=== PATIENT | female | born 1990 | race Caucasian/White ===

== ENCOUNTER → 2018-01-05 | Outpatient (CLI) | payer OTHER ==
[2018-01-05 10:48] LABS: HEMATOCRIT 35.3 % (35.0-46.0); MEAN CELL VOLUME 91.4 FL (80.0-100.0); MEAN PLATELET VOLUME 8.3 FL (7.0-11.0); PLATELET COUNT 216 TH/MM3 (150-450); RED BLOOD COUNT 3.86 MIL/MM3 (4.00-5.30); RED CELL DISTRIBUTION WIDTH 13.8 % (11.6-17.2); WHITE BLOOD COUNT 13.5 TH/MM3 (4.0-11.0)
== END ==
LOC: CLAB 09:15
PROVIDERS: ATTEND Obstetrics & Gynecology
DX: R74.0 Nonspecific elevation of levels of transaminase and lactic acid dehydrogenase [LDH] (principal); Z33.1 Pregnant state, incidental
CPT/HCPCS: 36415; 82951; 85027

== ENCOUNTER 2018-04-04 06:50 | Inpatient (IN) ==
[2018-04-04] MEDS ORDERED: Citric Acid/Sodium Citrate Liq 30 ML UDC PO SCH (07:30)
[2018-04-04 07:42] LABS: Baso % (Auto) 0.4 % (0.0-2.0); Eos # (Auto) 0.1 th/mm3 (0.0-0.4); Eos % (Auto) 0.5 % (0.0-4.0); Hematocrit 36.2 % (35.0-46.0); Hemoglobin 12.2 gm/dL (11.6-15.3); Lymph # (Auto) 2.4 th/mm3 (1.0-4.8); Lymph % (Auto) 23.1 % (9.0-44.0); Mean Corpuscular HGB Conc 33.7 % (32.0-36.0); Mean Corpuscular Hemoglobin 29.7 pg (27.0-34.0); Mean Corpuscular Volume 88.1 fL (80.0-100.0); Mean Platelet Volume 9.1 fL (7.0-11.0); Mono # (Auto) 0.5 th/mm3 (0.0-0.9); Mono % (Auto) 4.4 % (0.0-8.0); Neut # (Auto) 7.5 th/mm3 (1.8-7.7); Neut % (Auto) 71.6 % (16.0-70.0); Platelet Count 188 th/mm3 (150-450); Red Blood Count 4.11 mil/mm3 (4.00-5.30); Red Cell Distribution Width 14.1 % (11.6-17.2); White Blood Count 10.5 th/mm3 (4.0-11.0)
[2018-04-04 07:52] LABS: Bilirubin,Urine Negative (Negative); Clarity,Urine Hazy (Clear); Color,Urine Yellow (Yellw/Straw); Glucose,Urine (UA) Negative (Negative); Leukocyte Esterase,Urine Negative (Negative); Nitrite,Urine Negative (Negative); Specific Gravity,Urine 1.017 (1.002-1.035); Squamous Epithelial Cell,Urine 5 /hpf (0-5)
[2018-04-04] MEDS ORDERED: ceFAZolin 2 GM Premix Inj 2 GM/50 ML PIGGYBACK IV.SIG SCH (07:56)
[2018-04-04 07:57] LABS: Amphetamine Screen,Urine Neg (Neg); Barbiturate Screen,Urine Neg (Neg); Cannabinoid Screen,Urine Neg (Neg); Cocaine Screen,Urine Neg (Neg)
[2018-04-04 07:58] LABS: Opiate Screen,Urine Neg (Neg)
[2018-04-04] MEDS ORDERED: Zolpidem Tartrate 5 MG Tablet PO PRN (10:00)
[2018-04-04] MEDS ORDERED: Senna/Docusate Sodium 8.6/50 MG Tablet PO PRN (10:00)
[2018-04-04] MEDS ORDERED: Ibuprofen 600 MG Tablet PO PRN (10:00)
[2018-04-04] MEDS ORDERED: Oxytocin 30 Units/500ml Premix 30 UNITS/500 ML BAG IV.SIG ONE ×2 (10:00)
[2018-04-04] MEDS ORDERED: Simethicone 80 MG Chew Tablet PO PRN (10:00)
[2018-04-04] MEDS ORDERED: Ketorolac Inj 30 MG/ML (IVP) Vial IV.PUSH PRN (10:02)
--- NOTE | 2018-04-04 10:29 | MP ---
cc: Ariel Wen MD DATE OF OPERATION: 04/04/2018 PREOPERATIVE DIAGNOSES: 1. Term . 2. Previous section. POSTOPERATIVE DIAGNOSES: 1. Term . 2. Previous section. 3. Delivered. PROCEDURE PERFORMED: Repeat low transverse section. ANESTHESIA: Spinal. SURGEON: Ariel Wen MD WIRE [employer]AME LAMPSH[employer] MAKER: Gisele Banuelos. ESTIMATED BLOOD LOSS: About 600 mL. FLUIDS: 1.2 liters crystalloid. OBJECTIVE FINDINGS: Following induction of adequate spinal anesthesia, the patient was prepped and draped supine on the operating table in left lateral tilt position usual sterile fashion and the bladder drained via Estevez catheterization. The abdomen was opened through a Pfannenstiel incision using a knife to cut down through the skin to the fascia. The fascia opened transversely, stripped from the muscles, rectus muscle split in the midline and the peritoneum opened sharply without incident. The bladder flap was taken down sharply and retracted inferiorly with the Josie blade. The lower uterine segment was incised transversely with a knife, extended blunt dissection. Membranes ruptured, revealed clear fluid. Baby was in LOT position. The vacuum extractor applied to the occiput and used to deliver the head through the uterine abdominal wound. Mouth was suctioned, cord clamped and cut and the baby passed to the awaiting team. A viable vigorous female, Apgars 8 and 9. Cord blood was obtained for typing, the placenta for donation. Uterine cavity wiped clean with laps. Uterus was exteriorized and closed in 2 layers of running suture, first with a running locking stitch of 0 Vicryl, second with running imbricating stitch of 0 Vicryl. Posterior inspection, uterus, tubes, and ovaries normal. Uterus was replaced into the abdominal cavity. Irrigation performed. No bleeding was evident and the bladder flap was closed with a running stitch of 3-0 Vicryl. All laps and retractors removed. Counts were correct. The anterior peritoneum closed with running 2-0 Vicryl. The fascia with a running locking stitch of 0 Vicryl, corner to the midline and tied, subcutaneous with running 3-0 Vicryl and the skin with a running subcuticular 3-0 Monocryl. Dermabond applied. All counts were correct and the patient was awakened and taken to the recovery room in good condition. MD PALOMA Luna/MAYE , 10:07 AM , 10:13 AM
[2018-04-04] MEDS ORDERED: Oxytocin 30 Units/500ml Premix 30 UNITS/500 ML BAG ONE (11:04)
[2018-04-04] MEDS ORDERED: Oxytocin 30 Units/500ml Premix 30 UNITS/500 ML BAG IV.SIG PRN (15:00)
[2018-04-05] MEDS ORDERED: Measles/Mumps/Rubella Vaccine Inj 0.5 ML Vial SQ ONE (16:00)
[2018-04-05] MEDS ORDERED: Diphtheria/Tetanus/Pertussis Vaccine Inj 0.5 ML Syringe IM ONE (16:00)
[2018-04-06 08:55] LABS: Hematocrit 35.5 % (35.0-46.0); Hemoglobin 11.8 gm/dL (11.6-15.3); Mean Corpuscular HGB Conc 33.4 % (32.0-36.0); Mean Corpuscular Volume 89.9 fL (80.0-100.0); Mean Platelet Volume 8.5 fL (7.0-11.0); Platelet Count 201 th/mm3 (150-450); Red Blood Count 3.95 mil/mm3 (4.00-5.30); Red Cell Distribution Width 14.3 % (11.6-17.2); White Blood Count 12.5 th/mm3 (4.0-11.0)
--- NOTE | 2018-04-06 09:19 | MD ---
cc: Ariel Wen MD DATE OF DISCHARGE: 04/06/2018 ADMITTING DIAGNOSES: 1. Term . 2. Previous section. DISCHARGE DIAGNOSES: 1. Term . 2. Previous section. 3. Post delivered. PROCEDURE: Repeat low transverse section on 04/04/2018. HISTORY OF PRESENT ILLNESS: The patient is a 27-year-old white female, para 1-0-0-1. LMP of 07/01/2017, EDC of 04/07/2018. Her course was benign. Her previous delivery was for failure to progress occiput posterior. The patient requested a repeat section for this delivery. PAST MEDICAL HISTORY: Previous surgery, T and A, age 19, spontaneous in 2013 that required D and C, and a in 2015. MEDICATIONS: Vitamins. ALLERGIES: NONE. TRANSFUSIONS: None. SOCIAL HISTORY: She is . 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 Alcohol, tobacco, and drugs are none. HOSPITAL COURSE: On the day of admission, she underwent a repeat low transverse section with delivery of a viable vigorous female, Apgars were 8 and 9, weight 8 pounds 4 ounces. Baby was named Roland King and she was . did well. Discharged home in excellent condition on 04/06/2018. DISCHARGE INSTRUCTIONS: She was advised NPV, light activity, no driving, return to see me in 1 week. She will take OTC Motrin and Tylenol for pain relief. She will call if any abnormal symptoms. Office in 1 week. MD PALOMA Luna/[email or web address] , 08:04 AM , 08:09 AM
--- NOTE | 2018-04-07 11:56 | MH ---
cc: Ariel Wen MD DATE OF ADMISSION: 04/04/2018 MAIN DIAGNOSES: 1. Term . 2. Previous section. HISTORY OF PRESENT ILLNESS: This is a 27-year-old, , white female, para 1-0-1-1, LMP of 07/01/2017, EDC of 04/07/2018 by dates, 04/11/2018 by ultrasound. course was benign. First delivery by for failure to progress OP and meconium stained fluid. She is now admitted for repeat section. PAST SURGICAL HISTORY: T and A at age 19, in 2015, spontaneous in 2013 required D and C at 6 weeks. MEDICATIONS: Vitamins. ALLERGIES: NONE. TRANSFUSIONS: None. SOCIAL HISTORY: She is . She is an RN at [employer]. Alcohol, tobacco, and drugs are none. REVIEW OF SYSTEMS: Negative. PHYSICAL EXAMINATION: GENERAL: Well-nourished, well-developed white female. VITAL SIGNS: Stable. HEENT: Normal. CHEST: Clear. HEART: Regular rate. BREASTS: Symmetrical. ABDOMEN: Gravid. EFW of 3200 grams. PELVIC: Cervix is closed. EXTREMITIES: Normal. ASSESSMENT: As the above, she is now admitted for repeat section. The risks and benefits and complications including infection, injury, bleeding explained and accepted. Last ultrasound showed vertex presentation and posterior placenta. MD PALOMA Luna/[email or web address]/london , 01:26 PM , 01:34 PM
== END 2018-04-06 10:26 | disposition home or self-care (01) ==
LOC: H2E 06:50 → H1EA 11:30
PROVIDERS: ADMIT Obstetrics & Gynecology; ATTEND Obstetrics & Gynecology